=== PATIENT | female | born 1965 | race African-American/Black ===

== ENCOUNTER 2018-10-05 17:45 | Emergency (ER) | payer OTHER ==
[2018-10-05 20:06] LABS: ADD UMIC NO; UR ASCORBIC ACID NEGATIVE (NEGATIVE); UR BILIRUBIN (Dip) NEGATIVE (NEGATIVE); UR BLOOD (Dip) NEGATIVE (NEGATIVE); UR CLARITY CLEAR (CLEAR); UR COLOR YELLOW (YELLOW); UR GLUCOSE (Dip) NEGATIVE (NEGATIVE); UR KETONES (Dip) NEGATIVE (NEGATIVE); UR LEUKOCYTE ESTERASE (Dip) NEGATIVE Leu/ul (NEGATIVE); UR NITRITE (Dip) NEGATIVE (NEGATIVE); UR SPECIFIC GRAVITY (Dip) 1.029 (1.003-1.030); UR TOTAL PROTEIN (Dip) NEGATIVE (NEGATIVE); UR UROBILINOGEN (Dip) 1+ mg/dL (NEGATIVE)
== END 2018-10-05 20:30 | disposition home or self-care (01) ==
LOC: FTE 17:45
DX: G44.209 Tension-type headache, unspecified, not intractable (principal); I10 Essential (primary) hypertension; Z79.82 Long term (current) use of aspirin
CPT/HCPCS: 81003; 82962; 99283

== ENCOUNTER 2018-10-30 07:07 | Day surgery (SDC) | payer OTHER ==
[2018-10-30] MEDS ORDERED: MIDAZOLAM 1 MG/ML 2 ML INJ ×2 (08:57)
[2018-10-30] MEDS ORDERED: FENTAnyl 50 MCG/ML VIAL (08:58)
== END 2018-10-30 17:51 | disposition home or self-care (01) ==
LOC: GIL 07:07
DX: Z12.11 Encounter for screening for malignant neoplasm of colon (principal); K64.9 Unspecified hemorrhoids; I10 Essential (primary) hypertension
CPT/HCPCS: 45378